=== PATIENT | male | born 1995 | race Caucasian/White ===

== ENCOUNTER → 2022-12-08 | Outpatient (CLI) | payer OTHER ==
--- NOTE | 2022-12-08 16:38 | US ---
EXAMINATION TYPE: US abdomen comp/pelvis limited DATE OF EXAM: 12/08/2022 COMPARISON: NONE CLINICAL INDICATION: Male, 27 years old with history of R10.13 R11.2 R19.7 R10.11; right upper quadra nt pain EXAM MEASUREMENTS: Liver Length: 14.1 cm Gallbladder Wall: .2 cm CBD: .3 cm Spleen: 12 cm Right Kidney: 9.8 x 3.4 x 5.0 cm Left Kidney: 10.4 x 4.2 x 3.5 cm Pancreas: Obscured by bowel gas Liver: No focal lesion. Overall homogeneous parenchyma. Gallbladder: No stones seen CBD: wnl Spleen: wnl Right Kidney: No hydronephrosis or masses seen Left Kidney: No hydronephrosis or masses seen Upper IVC: wnl Abd Aorta: wnl Bladder: wnl Bilateral Jets Seen Yes IMPRESSION: Suboptimal visualization of the pancreas. Otherwise, unremarkable sonographic examination of the abdomen.
== END | disposition home or self-care (01) ==
LOC: RADUSWWP 10:21
PROVIDERS: ATTEND Family Medicine
DX: R10.13 Epigastric pain (principal); R11.2 Nausea with vomiting, unspecified; R19.7 Diarrhea, unspecified; R10.11 Right upper quadrant pain
CPT/HCPCS: 76700; 76857

== ENCOUNTER → 2023-02-02 | Outpatient (CLI) | payer OTHER ==
--- NOTE | 2023-02-02 15:24 | NM ---
EXAMINATION TYPE: NM hepatobiliary w EF DATE OF EXAM: 02/02/2023 COMPARISON: Ultrasound 12/06/2022 CLINICAL INDICATION: Male, 27 years old with history of R10.11 RIGHT UPPER QUADRANT PAIN, R11.2 nause a; TECHNIQUE: After the intravenous administration of 4.9 mCi Tc 99m Mebrofenin hepatobiliary scintigrap hy is performed. Immediate images post injection. FINDINGS: There is satisfactory initial accumulation of tracer by the liver. The gallbladder is visualized wit hin 8 minutes. The small bowel activity is noted within 44 minutes. At one hour 8 ounces of oral en sure plus is given to mimic CCK and gallbladder ejection fraction is calculated at 63 %, in the lavern l range. Therefore there is no scintigraphic evidence of cystic or common bile duct obstruction to s uggest acute cholecystitis or gallbladder dyskinesia. IMPRESSION: Exam is within normal limits.
== END | disposition home or self-care (01) ==
LOC: RADNMMAIN 12:44
PROVIDERS: ATTEND Family Medicine
DX: R10.11 Right upper quadrant pain (principal); R11.2 Nausea with vomiting, unspecified
CPT/HCPCS: 78226; A9537